=== PATIENT | female | born 2000 | race African-American/Black ===

== ENCOUNTER 2020-07-15 12:37 | Emergency (ER) | payer OTHER, SELFPAY ==
[2020-07-15] VITALS (24 sets, daily range): BP systolic 123–130; BP diastolic 67–89; PULSE 64–92; RESP 13–20; TEMP 37.1; O2SAT 96–100
--- NOTE | ~2020-07-15 | CT_ITS ---
EXAMINATION: CT brain wo con EXAM DATE: 07/15/2020 14:23 INDICATION: Seizure without head injury. TECHNIQUE: Spiral CT of the head was performed without contrast. Axial, coronal and sagittal images were reviewed. The dose-length product (DLP) for this examination was 529.67 mGy-cm. The exposure w as tailored according to patient size, and iterative reconstruction (ASIR) was used as additional dos e reduction technique. There is no prior study for comparison. FINDINGS: There is no acute intraparenchymal hemorrhage. No evidence of intraparenchymal brain mass lesion. No evidence of acute infarction. There is no mass effect or midline shift. The ventricles are normal in size. There are no extra-axial collections. There are no acute calvarial fractures. T he orbits are unremarkable. Soft tissue is unremarkable. The visualized sinuses and mastoid air clif[place] ls are well aerated. IMPRESSION: Normal head CT. Reviewed, dictated and finalized at location A. IMPRESSION: Normal head CT.
--- NOTE | 2020-07-15 13:55 | ECG_ITS ---
Measurements Intervals [place] Rate: 99 P: 74 NE: 153 QRS: 61 QRSD: 87 T: 48 QT: 326 QTc: 419 Interpretive Statements SINUS RHYTHM WITH SINUS ARRHYTHMIA POSSIBLE LEFT ATRIAL ENLARGEMENT BORDERLINE ECG Electronically Signed On 07-15-2020 14:00:15 CDT by Roosevelt Machado D.O.
--- NOTE | 2020-07-15 14:14 | ED.SEIZURE ---
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[employer] but did not work last night Apparently she got up early and then went back to take a nap The thirdhand report is that her boyfriend who is not here had not seen her get back up and checked on her and thought her teeth might have been clenched or her hands could have been clenched but she was under the covers it was hard to tell She was not incontinent of urine EMS did not report witnessing any actual seizure activity but they by report did not rule out that she could have been confused/postictal Here she has no complaints whatsoever, denies having bit her tongue, denies incontinence, denies any muscular soreness or other injury She smokes cigarettes but not even every day, she drinks wine but not every day chest usually when she smokes cigarettes, she smokes pot but not every day, and she does not use other drugs Her boyfriend did arrive later on and his description is more seizure-like, with clenching of jaw, possible biting tongue or lip Related Data Home Medications Medication Instructions Recorded Confirmed No Home Medications 07/15/20 07/15/20 Allergies Allergy/AdvReac Type Severity Reaction Status Date / Time No Known Allergies Allergy Verified 07/15/20 13:33 Review of Systems Review of Systems: All systems reviewed & are unremarkable except as noted in HPI and below Constitutional: Constitutional: Reports no additional constitutional complaints, Denies chills, Denies fever(s) and Denies headache(s) Eyes: Eyes: Reports no additional eye complaints and Denies change in vision ENT: Denies dysphagia, Denies headache(s) and Denies sore throat Cardiovascular: Cardiovascular: Denies chest pain and Denies dyspnea Respiratory: Respiratory: Denies cough and Denies dyspnea Gastrointestinal: Gastrointestinal: Denies abdominal pain, Denies diarrhea and Denies vomiting Genitourinary: Genitourinary: Denies urinary frequency and Denies dysuria Musculoskeletal: Musculoskeletal: Denies deformity, Denies arthralgias, Denies joint swelling and Denies numbness Integumentary/Breasts: Skin/Breast: Denies rash and Denies wounds Neurologic: Denies headache(s), Denies focal weakness and Denies numbness Psychiatric: Psychiatric: Reports no additional psychiatric complaints Endocrine: Endocrine: Reports no additional endocrine complaints Hematologic/Lymphatic: Hematologic/Lymphatic: Reports no additional hematologic/lymphatic complaints Allergic/Immunologic: Allergic/Immunologic: Reports no additional allergic/immunologic complaints Exam Const: General: cooperative, healthy appearing, no acute distress and alert Orientation/consciousness: patient oriented x3 (alert) and No confusion Limitations: No altered mental status HENMT: Head: normal to inspection, normocephalic, atraumatic, no contusions and no hematomas Ears: external ears normal General nose exam: no epistaxis Eyes: Conjunctivae: conjunctivae normal Pupils: Equal, round and reactive pupils present EOM: EOMs intact bilaterally Neck: Neck: normal visual inspection, supple and no JVD Other: Supple Resp: Effort & Inspection: normal respiratory effort and not labored Auscultation: clear to auscultation bilaterally and other (BS =) Cardio: Rate: regular rate Rhythm: regular rhythm Heart sounds: no murmurs GI: GI Palp: Yes Soft to palpation, Yes Tenderness to palpation present (GI), No Guarding due to palpation present (GI) and No Rebound tenderness present Skin: General skin exam: normal color and no rashes or lesions noted Neuro: General: patient oriented x
[2020-07-15 14:58] LABS: Add Urine Microscopic? YES; Appearance Urine Clear (Clear); Bilirubin Urine Negative (Negative); Blood Urine Negative (Negative); Color Urine Yellow (Yellow); Glucose Urine UA Negative (Negative); Ketones Urine Negative (Negative); Leukocyte Esterase Ur Negative LEU/UL (Negative); Mucus Urine Rare /lpf; Nitrate Urine Negative (Negative); Protein Urine 1+ mg/dL (Negative); RBC Urine 0-2 /hpf (0-2); Specific Grav Ur 1.017 (1.001-1.035); Squamous Epithelial Cell Urine Occasional /hpf (Few); Urobilinogen Urine Negative mg/dL (<2.0); WBC Urine 0-3 /hpf
[2020-07-15 15:07] LABS: Basophils Absolute Auto 0.1 K/mm3 (0.0-0.1); Basophils Percent Auto 0.4 % (0.2-1.2); Eosinophils Absolute Auto 0.2 K/mm3 (0-0.3); Eosinophils Percent Auto 1.6 % (0-4.4); Hematocrit 43.1 % (37.0-47.0); Hemoglobin 14.4 g/dL (12.0-15.0); Immature Granulocyte Absolute 0.05 K/mm3 (0.00-0.031); Immature Granulocyte Percent A 0.4 % (0-0.5); Lymphocytes Absolute Auto 3.01 K/mm3 (0.9-3.2); Lymphocytes Percent Auto 23.5 % (18.3-44.2); Mean Corpuscular HGB Conc 33.4 g/dl (32-36); Mean Corpuscular Hemoglobin 30.8 pg (26-34); Mean Corpuscular Volume 92.3 fl (80-100); Mean Platelet Volume 11.2 fl (7.4-10.4); Monocytes Absolute Auto 1.1 K/mm3 (0.1-0.6); Monocytes Percent Auto 8.4 % (2.6-8.5); Neutrophils Absolute Auto 8.4 K/mm3 (1.3-6.7); Neutrophils Percent Auto 65.7 % (45.5-73.1); Platelet Count Result 240 k/mm3 (150-375); Red Blood Count 4.67 M/mm3 (4.2-5.4); White Blood Count 12.8 K/mm3 (4.5-10.0)
[2020-07-15 15:18] LABS: Barbiturate Screen Urine Negative (Negative); Benzodiazepines Screen Urine Negative (Negative)
[2020-07-15 15:21] LABS: Ethanol < 10 mg/dL (<10)
[2020-07-15 15:26] LABS: Cannabinoid Screen Urine Positive (Negative); Cocaine Screen Urine Negative (Negative); Methadone Screen Urine Negative (Negative); Opiate Screen Urine Negative (Negative); Phencyclidine Screen Urine Negative (Negative)
[2020-07-15 16:31] LABS: Alanine Aminotransferase 21 U/L (4-35); Albumin Level 4.1 g/dL (3.5-5.1); Alkaline Phosphatase 81 U/L (38-126); Anion Gap 3 mmol/L (8-16); Aspartate Amino Transferase 27 U/L (14-36); Bilirubin,Total 0.3 mg/dL (0.2-1.3); Blood Urea Nitrogen 8 mg/dL (7-17); Calcium 8.8 mg/dL (8.4-10.2); Carbon Dioxide 28 mmol/L (22-30); Chloride 106 mmol/L (98-107); Estimated CRCL calculation 123 ml/min; Estimated Glomerular Filt Rate > 60; Glucose 96 mg/dL (65-105); Potassium 4.4 mmol/L (3.4-5.0); Sodium 137 mmol/L (137-145)
[2020-07-18 07:54] LABS: Prolactin 9.7 ng/mL (***)
== END 2020-07-15 17:55 | disposition home or self-care (01) ==
PROVIDERS: Emergency Provider Emergency Medicine
DX: R40.4 Transient alteration of awareness (principal); F17.210 Nicotine dependence, cigarettes, uncomplicated; R94.31 Abnormal electrocardiogram [ECG] [EKG]
CPT/HCPCS: 36415; 70450; 80053; 80307; 81001; 81025; 84146; 85025; 93005; 99284

== ENCOUNTER 2020-07-18 21:00 | Emergency (ER) | payer OTHER, SELFPAY ==
[2020-07-18 21:01] VITALS: TEMP 36.8
[2020-07-18 21:08] LABS: Glucose Point of Care 88 (65-105)
[2020-07-18 21:18] VITALS: BP 127/81; PULSE 105; RESP 16; TEMP 37.1; O2SAT 100
[2020-07-18 22:04] LABS: Basophils Percent Auto 0.3 % (0.2-1.2); Eosinophils Absolute Auto 0.2 K/mm3 (0-0.3); Eosinophils Percent Auto 1.3 % (0-4.4); Hemoglobin 14.8 g/dL (12.0-15.0); Immature Granulocyte Absolute 0.04 K/mm3 (0.00-0.031); Immature Granulocyte Percent A 0.3 % (0-0.5); Lymphocytes Absolute Auto 2.57 K/mm3 (0.9-3.2); Lymphocytes Percent Auto 21.7 % (18.3-44.2); Mean Corpuscular HGB Conc 32.9 g/dl (32-36); Mean Corpuscular Hemoglobin 31.3 pg (26-34); Mean Corpuscular Volume 95.1 fl (80-100); Mean Platelet Volume 10.9 fl (7.4-10.4); Monocytes Absolute Auto 0.9 K/mm3 (0.1-0.6); Monocytes Percent Auto 7.6 % (2.6-8.5); Neutrophils Absolute Auto 8.2 K/mm3 (1.3-6.7); Neutrophils Percent Auto 68.8 % (45.5-73.1); Platelet Count Result 225 k/mm3 (150-375); Red Blood Count 4.73 M/mm3 (4.2-5.4); Red Cell Distribution Width 12.6 % (11.5-14.5); White Blood Count 11.9 K/mm3 (4.5-10.0)
[2020-07-18 22:17] LABS: Anion Gap 8 mmol/L (8-16); Blood Urea Nitrogen 7 mg/dL (7-17); Calcium 9.1 mg/dL (8.4-10.2); Carbon Dioxide 26 mmol/L (22-30); Chloride 105 mmol/L (98-107); Estimated CRCL calculation 117 ml/min; Estimated Glomerular Filt Rate > 60; Glucose 82 mg/dL (65-105); Potassium 4.1 mmol/L (3.4-5.0); Sodium 139 mmol/L (137-145)
[2020-07-18] MEDS: levETIRAcetam 1000MG/NACL100ML 1,000 MG/100 ML BAG 400 MG IVPB (22:23)
[2020-07-18] MEDS: ACETAMINOPHEN 500 MG TABLET 1000 MG PO (22:23)
--- NOTE | 2020-07-18 22:45 | ED.SEIZURE ---
HPI - Seizure General Chief Complaint: Seizure Stated Complaint: seizure Time Seen by Provider: 07/18/20 21:06 History of Present Illness HPI Narrative: Patient is a 20-year-old female who presents ER with seizure. Witnessed by father. Reports he she started looking off to the right side and her right arm extended out and then her hand became flexed. Shook for about 10 minutes. Patient regained consciousness upon arrival to the ER. Had a similar episode earlier in the week. Was not started on antiepileptics as it is a first-time seizure. Patient has been working nights and gets intermittent sleep during the day. His only real modification that could be causing stress in her life. No fevers or chills or sweats. No drug abuse. Patient reports she has not been driving. She does not abuse drugs or drink alcohol excessively. Seizure History: Yes Related Data Allergies Allergy/AdvReac Type Severity Reaction Status Date / Time No Known Allergies Allergy Verified 07/18/20 21:04 Review of Systems Review of Systems: All systems reviewed & are unremarkable except as noted in HPI and below Constitutional: Constitutional: Denies chills, Denies fever(s) and Denies weakness ENT: Denies nasal congestion and Denies sore throat Cardiovascular: Cardiovascular: Denies chest pain, Denies rapid heart rate and Denies radiating jaw, neck or arm pain Respiratory: Respiratory: Denies cough, Denies dyspnea and Denies wheezing Neurologic: Denies focal weakness and Denies numbness Comments: Seizure PMFSH Past Medical History Medical History (Updated 07/18/20 @ 22:48 by Jacob Mariee MD) Seizures Surgical History Surgical History (Updated 07/18/20 @ 22:47 by Jacob Mariee MD) No pertinent past surgical history Social History Social History (Updated 07/18/20 @ 22:47 by Jacob Mariee MD) Smoking status: Never smoker Exam Narrative: Exam Narrative: GENERAL: Well-appearing, well-nourished, and in no acute distress. HEAD: Normocephalic, atraumatic. ENT: Mucous membranes moist. No injury to tongue. CHEST: Clear to auscultation. No respiratory distress. HEART: Regular rate and rhythm. Normal peripheral pulses. ABDOMEN: Soft, nontender, nondistended. EXTREMITIES: Normal range of motion. No edema. NEURO: Alert and oriented x3. PSYCH: Normal mood and affect. Course Course Emergency Course: Patient given Keppra 1 g IV for load. Discussed Dr. Rene who recommends Keppra 500 mg twice daily outpatient. Also would recommend outpatient EEG. Needs to follow-up in clinic. Patient educated about treatment plan and verbalized understanding. Vital Signs Vital signs: Vital Signs Temperature 98.2 F 07/18/20 21:01 Temperature 98.8 F 07/18/20 21:18 Pulse Rate 105 H 07/18/20 21:18 Respiratory Rate 16 07/18/20 21:18 Blood Pressure 127/81 07/18/20 21:18 Pulse Oximetry 100 07/18/20 21:18 MDM - Seizure Lab Data Result diagrams: 07/18/20 21:56 07/18/20 21:56 Labs: Lab Results 07/18/20 07/18/20 07/18/20 Range/Units 21:05 21:56 21:56 WBC 11.9 H (4.5-10.0) K/mm3 RBC 4.73 (4.2-5.4) M/mm3 Hgb 14.8 (12.0-15.0) g/dL Hct 45.0 (37.0-47.0) % MCV 95.1 (80-100) fl MCH 31.3 (26-34) pg MCHC 32.9 (32-36) g/dl RDW 12.6 (11.5-14.5) % Plt Count 225 (150-375) k/mm3 MPV 10.9 H (7.4-10.4) fl Immature Gran % (Auto) 0.3 (0-0.5) % Neut % (Auto) 68.8 (45.5-73.1) % Lymph % (Auto) 21.7 (18.3-44.2) % [place] % (Auto) 7.6 (2.6-8.5) % Eos % (Auto) 1.3 (0-4.4) % Baso % (Auto) 0.3 (0.2-1.2) % Lymph # (Auto) 2.57 (0.9-3.2) K/mm3 [place] # (Auto) 0.9 H (0.1-0.6) K/mm3 Eos # (Auto) 0.2 (0-0.3) K/mm3 Baso # (Auto) 0.0 (0.0-0.1) K/mm3 Abs Immat Gran (auto) 0.04 H (0.00-0.031) K/mm3 Absolute Neuts (auto) 8.2 H (1.3-6.7) K/mm3 Absolute Nucleated RBC 0.0 (0.0-0.012) K/mm3 Nucleated
[2020-07-18 23:51] VITALS: BP 120/74; PULSE 75; RESP 16; TEMP 36.6; O2SAT 100
[2020-07-19 00:03] LABS: Amphetamine Screen Urine Negative (Negative); Barbiturate Screen Urine Negative (Negative); Benzodiazepines Screen Urine Negative (Negative); Cannabinoid Screen Urine Positive (Negative); Cocaine Screen Urine Negative (Negative); Methadone Screen Urine Negative (Negative); Opiate Screen Urine Negative (Negative); Phencyclidine Screen Urine Negative (Negative)
== END 2020-07-18 23:52 | disposition home or self-care (01) ==
PROVIDERS: Emergency Provider Emergency Medicine
DX: R56.9 Unspecified convulsions (principal)
CPT/HCPCS: 36415; 80048; 80307; 82948; 85025; 85055; 96365; 99284; A9270; J1953

== ENCOUNTER 2020-08-01 16:49 | Emergency (ER) | payer OTHER, SELFPAY ==
--- NOTE | 2020-08-01 17:50 | PC.NURSE ---
pt left to go to [place] with her father, pt had iv removed prior to leaving the ED.
== END 2020-08-01 17:50 | disposition left against medical advice (07) ==
PROVIDERS: Emergency Provider Emergency Medicine
DX: Z53.21 Procedure and treatment not carried out due to patient leaving prior to being seen by health care provider (principal)
CPT/HCPCS: 99199

== ENCOUNTER 2020-08-01 18:48 | Inpatient (IN) | payer OTHER, SELFPAY ==
[2020-08-01] VITALS (14 sets, daily range): BP systolic 93–143; BP diastolic 54–90; PULSE 72–105; RESP 14–26; TEMP 36.5–36.8; O2SAT 99–100
--- NOTE | ~2020-08-01 | XR_ITS ---
EXAMINATION: XR chest 1V portable DATE: 08/03/2020 09:44 INDICATION: Fluid retention. TECHNIQUE: A single frontal view of the chest was obtained. COMPARISON: None. FINDINGS: The chest demonstrates clear lungs without pneumonia, pleural effusion, or pneumothorax. Th e heart size is normal. IMPRESSION: 1. No acute cardiopulmonary disease. Reviewed, dictated and finalized at location A.
--- NOTE | ~2020-08-01 | CT_ITS ---
EXAMINATION: CT BRAIN W/O DATE: 08/01/2020 19:42 INDICATION: Seizures TECHNIQUE: Computed tomography (CT) of the head was performed without intravenous contrast. The dose- length product was 605.33 mGy-cm. The mA was adjusted according to patient size. Iterative reconstruc tion technique was employed. COMPARISON: CT dated 07/15/2020 FINDINGS: Normal brain parenchymal volume for age. Normal martínez-white differentiation. No acute intrac ranial hemorrhage, infarction, mass or mass effect. No ventriculomegaly or midline shift. Midline sagittal images demonstrate a normal corpus callosum, c raniovertebral junction and sella turcica. Basilar cisterns are patent. Paranasal sinuses and mastoids are pneumatized. No depressed skull fractures. IMPRESSION: 1. No acute intracranial abnormality. Reviewed, dictated and finalized at location A.
--- NOTE | 2020-08-01 19:00 | PC.NURSE ---
assumed care of Pt. Report from Brian IRIZARRY.
--- NOTE | 2020-08-01 19:03 | ECG_ITS ---
Measurements Intervals [place] Rate: 68 P: 74 [place]: 159 QRS: 57 QRSD: 90 T: 48 QT: 385 QTc: 410 Interpretive Statements SINUS RHYTHM BASELINE ARTIFACT- II, III, AVR, AVL, AVF, V1, V3-V6 NORMAL ECG Electronically Signed On 08-01-2020 20:03:59 CDT by Roosevelt Machado D.O.
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
--- NOTE | 2020-08-01 19:35 | PC.NURSE ---
pt to CT.
--- NOTE | 2020-08-01 19:45 | PC.NURSE ---
went to check on pt, pt IV edematous, discontinued IV. IV initiated prior to this RN assuming care of PT. Attempted to initiate another IV, unsuccessful.
--- NOTE | 2020-08-01 20:00 | PC.NURSE ---
Went and got Leonor RN. to attempt IV, Leonor unsuccessful x2. Leonor RN additional nurse to start IV.
--- NOTE | 2020-08-01 20:10 | PC.NURSE ---
Kelsi IRIZARRY went into pt room to initiate IV,pt was seizing. VORB from ERP Shawn 1 mg Ativan IVP administered for seizure. No iv access was obtained prior to seizure. IO placed by jerardo IRIZARRY
[2020-08-01 20:17] LABS: Basophils Percent Auto 0.3 % (0.2-1.2); Eosinophils Percent Auto 0.1 % (0-4.4); Hematocrit 45.7 % (37.0-47.0); Hemoglobin 14.7 g/dL (12.0-15.0); Immature Granulocyte Absolute 0.08 K/mm3 (0.00-0.031); Immature Granulocyte Percent A 0.5 % (0-0.5); Lymphocytes Percent Auto 12.7 % (18.3-44.2); Mean Corpuscular HGB Conc 32.2 g/dl (32-36); Mean Corpuscular Hemoglobin 30.4 pg (26-34); Mean Corpuscular Volume 94.4 fl (80-100); Mean Platelet Volume 11.8 fl (7.4-10.4); Monocytes Absolute Auto 0.8 K/mm3 (0.1-0.6); Neutrophils Absolute Auto 12.8 K/mm3 (1.3-6.7); Neutrophils Percent Auto 81.4 % (45.5-73.1); Platelet Count Result 261 k/mm3 (150-375); Red Blood Count 4.84 M/mm3 (4.2-5.4); Red Cell Distribution Width 12.7 % (11.5-14.5); White Blood Count 15.7 K/mm3 (4.5-10.0)
[2020-08-01 20:26] LABS: Alanine Aminotransferase 26 U/L (4-35); Albumin Level 4.7 g/dL (3.5-5.1); Alkaline Phosphatase 102 U/L (38-126); Anion Gap 9 mmol/L (8-16); Aspartate Amino Transferase 38 U/L (14-36); Bilirubin,Total 0.2 mg/dL (0.2-1.3); Blood Urea Nitrogen 4 mg/dL (7-17); Calcium 8.9 mg/dL (8.4-10.2); Carbon Dioxide 25 mmol/L (22-30); Chloride 106 mmol/L (98-107); Estimated Glomerular Filt Rate > 60; Glucose 142 mg/dL (65-105); Potassium 4.1 mmol/L (3.4-5.0); Sodium 140 mmol/L (137-145)
[2020-08-01] MEDS: LORazepam INJ (*CRX) 2 MG/ML VIAL 1 MG IV PUSH ×2 (20:27→21:20)
[2020-08-01] MEDS: SODIUM CHLORIDE 0.9% IV 1,000 ML 999 ML IV CONT (21:03)
[2020-08-01] MEDS: KETOROLAC 30 MG/ML VIAL (*BKC) IV PUSH (21:03)
[2020-08-01 21:11] LABS: Add Urine Microscopic? YES; Appearance Urine Clear (Clear); Bacteria Urine Trace /hpf; Bilirubin Urine Negative (Negative); Blood Urine 2+ (Negative); Color Urine Yellow (Yellow); Glucose Urine UA Negative (Negative); Ketones Urine Trace mg/dL (Negative); Leukocyte Esterase Ur Negative LEU/UL (Negative); Mucus Urine Rare /lpf; Nitrate Urine Negative (Negative); Protein Urine 2+ mg/dL (Negative); RBC Urine 51-75 /hpf (0-2); Specific Grav Ur 1.017 (1.001-1.035); Squamous Epithelial Cell Urine Rare /hpf (Few); Urobilinogen Urine Negative mg/dL (<2.0)
[2020-08-01] MEDS: fentaNYL CITRATE INJ (*CRX) 100 MCG/2 ML VIAL 50 MCG IV PUSH (21:20)
[2020-08-01 21:21] LABS: Lactic Acid Reflex 10.5 mmol/L (0.7-2.1)
[2020-08-01 22:03] LABS: Glucose CSF 93 mg/dL (40-70); Total Protein CSF 23 mg/dL (12-60)
--- NOTE | 2020-08-01 22:14 | PC.NURSE ---
Pt father wishes to be notified of any changes or updates. He asked to please leave a message if it goes to voicemail.
[2020-08-01 22:15] LABS: Amphetamine Screen Urine Negative (Negative); Barbiturate Screen Urine Negative (Negative); Benzodiazepines Screen Urine Negative (Negative); Cannabinoid Screen Urine Positive (Negative); Cocaine Screen Urine Negative (Negative); Methadone Screen Urine Negative (Negative); Opiate Screen Urine Negative (Negative); Phencyclidine Screen Urine Negative (Negative)
[2020-08-01 22:29] LABS: Appearance CSF Clear (Clear); CSF source CSF; Color CSF Colorless (Colorless); Lymphocytes CSF 80 % (40-80); Monocytes CSF 20 % (15-45); Nucleated Cell CSF 5 /uL (0-5); Red Blood Cell CSF 30 (0-2)
[2020-08-01] MEDS: levETIRAcetam 500MG/NACL 100ML 500 MG/100 ML BAG 400 MG IVPB (23:10)
[2020-08-02] VITALS (12 sets, daily range): BP systolic 106–131; BP diastolic 46–68; PULSE 60–99; RESP 16–18; TEMP 36–36.9; O2SAT 98–100; BMI 32.9
[2020-08-02 00:04] LABS: Reflex Lactic Acid Yes or No Add Lactic
--- NOTE | 2020-08-02 00:55 | ADMGEN ---
This patient, Veronica Wiggins, was admitted to Medical Room 250-. Patient/family oriented to hospital policies and general routines including ID bracelet, bed and alarms, visiting hours, pain management, procedures, bathroom and other care routines, personal items, smoking policy, room service/diet, and visiting hours. Information on how to activate the Rapid Response Team has been discussed. Patient/Family are encouraged to report perceived risks to care and to ask questions if they do not understand what they are told or what they should do.
[2020-08-02 01:11] LABS: Lactic Acid 1.4 mmol/L (0.7-2.1)
--- NOTE | 2020-08-02 01:13 | PC.NURSE ---
Lorazepam pulled from [facility] by Leonor IRIZARRY, not given. returned.
--- NOTE | 2020-08-02 02:14 | PM.IMHP ---
H&P: HPI History of Present Illness Date/Time: 08/02/20 02:14 Chief Complaint: Acute Seizure Narrative: This is a 20-year-old female with known history of recent ER visit on July 18, 2020 after she suffered a seizure and return to the hospital this evening with a complaint of seizure-like activity. The patient's father who presented with her reported to ER staff that the patient had a generalized seizure lasting approximately 10 minutes in duration. The patient was sitting in their car when she started to have her seizure. Apparently they were waiting to be seen in the waiting room and decided to leave when she suffered a 2nd seizure and was brought back to the hospital. While in the emergency room this evening the patient had a 3rd seizure that was witnessed by ER staff. She was loaded with IV Keppra in the ER. The patient was treated with Ativan IV. CT brain without contrast was performed which was unremarkable. Spinal tap was performed in the ER this evening. ER provider has consulted neurology who has asked that we admit the patient to the hospital and they will evaluate her in the morning. On my encounter with the patient tonight she is postictal and no history is obtainable at this time. Review of Systems Review of Systems: ROS unobtainable: Yes unobtainable due to medical condition PMFSH Past Medical History Medical History Seizures Surgical History Surgical History No pertinent past surgical history Family History Family History Grandparent Diabetes mellitus Father Heart murmur Social History Social History Smoking status: Never smoker Alcohol intake: current Substance use: current Substance use type: marijuana Last use: says she drinks every few weeks and doesnt drink alot Gender identity (if verbalized by the patient): Female Spiritual care concerns: No Meds Home Medications and Allergies Home Medications Medication Instructions Recorded Confirmed Type levetiracetam [Keppra] 500 mg PO BID 30 Days #60 tablet 07/18/20 08/02/20 Rx Allergies Allergy/AdvReac Type Severity Reaction Status Date / Time No Known Allergies Allergy Verified 04/08/21 21:04 Vital Signs Vital Signs - 24 hr 08/01/20 19:06 08/01/20 19:15 08/01/20 21:17 Temperature 36.5 C 36.7 C Pulse Rate 73 72 Pulse Rate [Monitor] 101 H Respiratory Rate 14 26 H Blood Pressure 128/74 Blood Pressure [Right Arm] 128/63 Pulse Oximetry 99 100 08/01/20 21:22 08/01/20 21:27 08/01/20 21:30 Temperature 36.7 C 36.7 C 36.7 C Pulse Rate Pulse Rate [Monitor] 105 H 91 99 Respiratory Rate 21 H 24 H 20 Blood Pressure Blood Pressure [Right Arm] 135/73 112/76 114/74 Pulse Oximetry 100 100 100 08/01/20 21:32 08/01/20 21:37 08/01/20 21:45 Temperature 36.7 C 36.7 C 36.7 C Pulse Rate Pulse Rate [Monitor] 92 89 94 Respiratory Rate 23 H 21 H 24 H Blood Pressure Blood Pressure [Right Arm] 100/70 93/66 L 120/90 Pulse Oximetry 100 100 100 08/01/20 22:00 08/01/20 22:15 08/01/20 22:30 Temperature 36.7 C 36.7 C 36.7 C Pulse Rate Pulse Rate [Monitor] 96 97 92 Respiratory Rate 23 H 20 21 H Blood Pressure Blood Pressure [Right Arm] 120/54 L 119/70 123/76 Pulse Oximetry 100 100 100 08/01/20 23:00 08/02/20 00:00 08/02/20 01:04 Temperature 36.3 C L Pulse Rate 83 79 Pulse Rate [Monitor] Respiratory Rate 18 16 Blood Pressure 143/78 H 106/46 L Blood Pressure [Right Arm] Pulse Oximetry 100 100 100 Exam Const: General: other (Somnolent, post-ictal) Nutritional Appearance: obese Orientation/consciousness: Other orientation findings (Somnolent and postictal) HENMT: Head: normal to inspection General nose exam: Normal external nose present Face and si
[2020-08-02 05:45] LABS: Basophils Percent Auto 0.2 % (0.2-1.2); Eosinophils Percent Auto 0.1 % (0-4.4); Hematocrit 40.5 % (37.0-47.0); Hemoglobin 13.2 g/dL (12.0-15.0); Immature Granulocyte Absolute 0.05 K/mm3 (0.00-0.031); Immature Granulocyte Percent A 0.3 % (0-0.5); Lymphocytes Absolute Auto 3.43 K/mm3 (0.9-3.2); Lymphocytes Percent Auto 17.8 % (18.3-44.2); Mean Corpuscular HGB Conc 32.6 g/dl (32-36); Mean Corpuscular Hemoglobin 30.3 pg (26-34); Mean Corpuscular Volume 92.9 fl (80-100); Mean Platelet Volume 11.3 fl (7.4-10.4); Monocytes Absolute Auto 1.5 K/mm3 (0.1-0.6); Monocytes Percent Auto 7.7 % (2.6-8.5); Neutrophils Absolute Auto 14.3 K/mm3 (1.3-6.7); Neutrophils Percent Auto 73.9 % (45.5-73.1); Platelet Count Result 270 k/mm3 (150-375); Red Blood Count 4.36 M/mm3 (4.2-5.4); Red Cell Distribution Width 12.5 % (11.5-14.5); White Blood Count 19.3 K/mm3 (4.5-10.0)
--- NOTE | 2020-08-02 05:56 | PC.NURSE ---
Mother Yenifer called about pt, patient said i could give mother an update on status.
[2020-08-02 06:03] LABS: Potassium 3.9 mmol/L (3.4-5.0)
[2020-08-02 06:08] LABS: Anion Gap 4 mmol/L (8-16); Blood Urea Nitrogen 3 mg/dL (7-17); Calcium 8.5 mg/dL (8.4-10.2); Carbon Dioxide 26 mmol/L (22-30); Chloride 107 mmol/L (98-107); Estimated CRCL calculation 144 ml/min; Estimated Glomerular Filt Rate > 60; Glucose 84 mg/dL (65-105); Sodium 137 mmol/L (137-145)
[2020-08-02 12:32] LABS: Add Urine Microscopic? YES; Appearance Urine Cloudy (Clear); Bilirubin Urine Negative (Negative); Blood Urine 3+ (Negative); Budding Yeast Urine Present /hpf; Color Urine Amber (Yellow); Glucose Urine UA Negative (Negative); Ketones Urine 1+ mg/dL (Negative); Leukocyte Esterase Ur Negative LEU/UL (Negative); Nitrate Urine Negative (Negative); Protein Urine 2+ mg/dL (Negative); RBC Urine >75 /hpf (0-2); Specific Grav Ur 1.023 (1.001-1.035); Urobilinogen Urine Negative mg/dL (<2.0)
--- NOTE | 2020-08-02 13:37 | WPDNEUROLOGY ---
Neurology EEG Report General Information Date of Study: 08/02/20 TEST eeg DIAGNOSIS seizures CONDITION OF RECORDING drowsy and sleep EEG NUMBER [id number] CLINICAL HISTORY patient was brought to the hospital emergency room for seizure activity EEG DESCRIPTION basic resting occipital frequency consists of low to medium voltage 8 to 9 hertz per 2nd alpha admixed with low-voltage 15 to 18 hertz per 2nd beta. During drowsiness low-voltage beta activity seen with waxing and waning posterior alpha rhythm. Bilateral symmetrical sleep activity seen during sleep. Multiple head and eye movements are seen throughout the tracing. Non paroxysmal. Nonfocal. Nonlateralizing. IMPRESSION No significant abnormalities noted
--- NOTE | 2020-08-02 13:46 | WPDNEURCNPN ---
Assessment and Plan Assessment and plan (1) Seizure: Code(s): R56.9 - Unspecified convulsions Status: Acute Additional Plan Recurrent seizures by his patient needs to an anticonvulsants was advise accordingly and also not to drive for the next several months and following the office Consult date: 08/02/20 Time Seen: 15:00 HPI: Veronica Wiggins is a 20 year old female admitted to the hospital subsequent to her having had a seizure in addition to the past history of visit to the emergency room on July 18, 2020 for the seizure as well the whole episode lasted for 10 minutes with a description that she was sitting in a car when she started to have seizure they were waiting into the waiting room to be seen when she decided to leave suffered a 2nd seizure was brought back to the hospital and while in the emergency room again she had a 3rd seizure she was loaded with IV Keppra in the emergency room along with treatment with Ativan intravenously CT scan of the brain was obtained which was negative for the bleed spinal tap was also performed in the emergency room and she was admitted to the hospital for further observation because of the history of 3 seizures in [address] as per the information available she has never smoked does drink alcohol and takes substance in addition to marijuana . evaluation in the emergency room revealed her to have wbc's of 19.3 with hemoglobin 13.2 and a platelet count of 270, basic metabolic panel was normal with lactic acid of 10.5 in the emergency room with subsequently came down to 1.4, UA was cloudy with 2+ protein 1+ ketones 3+ blood and more than 75 RBCs, his spinal fluid revealed 30 rbc's 5 total nucleated cells 80% lymphocytes and 20% monos side but the CSF glucose was 93 and protein only 23, drug screen positive for the cannabinoids, herpes simplex virus PCR is pending, head CT scan normal, as mentioned above patient has already been started on levetiracetam 500 mg twice a day Review of Systems Review of Systems: All systems reviewed & are unremarkable except as noted in HPI and below PMFSH Past Medical History Medical History Seizures Surgical History Surgical History No pertinent past surgical history Family History Family History Grandparent Diabetes mellitus Father Heart murmur Social History Social History Smoking status: Never smoker Alcohol intake: current Substance use: current Substance use type: marijuana Last use: says she drinks every few weeks and doesnt drink alot Gender identity (if verbalized by the patient): Female Spiritual care concerns: No Meds Home Medications and Allergies Home Medications Medication Instructions Recorded Confirmed Type levetiracetam [Keppra] 500 mg PO BID 30 Days #60 tablet 07/18/20 08/02/20 Rx Allergies Allergy/AdvReac Type Severity Reaction Status Date / Time No Known Allergies Allergy Verified 07/18/20 21:04 Vital Signs Vital Signs - 24 hr 08/01/20 19:06 08/01/20 19:15 08/01/20 19:30 Temperature 36.5 C 36.8 C Pulse Rate 73 72 78 Pulse Rate [Monitor] Respiratory Rate 14 20 Blood Pressure 128/74 126/78 Blood Pressure [Right Arm] Pulse Oximetry 99 100 08/01/20 21:17 08/01/20 21:22 08/01/20 21:27 Temperature 36.7 C 36.7 C 36.7 C Pulse Rate Pulse Rate [Monitor] 101 H 105 H 91 Respiratory Rate 26 H 21 H 24 H Blood Pressure Blood Pressure [Right Arm] 128/63 135/73 112/76 Pulse Oximetry 100 100 100 08/01/20 21:30 08/01/20 21:32 08/01/20 21:37 Temperature 36.7 C 36.7 C 36.7 C Pulse Rate 97 Pulse Rate [Monitor] 99 92 89 Respiratory Rate 20 23 H 21 H Blood Pressure 118/78 Blood Pressure [Right Arm] 114/74 100/70 93/66 L Pulse Oximetry 100 100 100 08/01/20 21:45 08/01/20 22:
--- NOTE | 2020-08-02 14:11 | PM.IMPN ---
Progress Note: A&P Assessment and Plan (1) Seizure: Code(s): R56.9 - Unspecified convulsions <Arline Saldivar BRIAN Lew - Last Filed: 08/02/20 14:12> Status: Acute <Arline LewBRIAN - Last Filed: 08/02/20 14:12> Assessment and Plan: The patient has been placed in observation status. Continue seizure precautions. Continue Keppra. P.r.n. IV Ativan for any acute seizures. Monitor electrolytes. CT brain was obtained and unremarkable. Neurology has been consulted. Appreciate neurology input. <Arline LewBRIAN - Last Filed: 08/02/20 14:12> (2) Leukocytosis: Qualifiers: Leukocytosis type: unspecified Qualified Code(s): D72.829 - Elevated white blood cell count, unspecified <Arline LewBRIAN - Last Filed: 08/02/20 14:12> Code(s): D72.829 - Elevated white blood cell count, unspecified <Arline LewBRIAN - Last Filed: 08/02/20 14:12> Status: Acute <Arline Saldivar BRIAN Lew - Last Filed: 08/02/20 14:12> Assessment and Plan: Likely secondary to acute seizure. Monitor CBCD <Arline Saldivar BRIAN Lew - Last Filed: 08/02/20 14:12> (3) Elevated lactic acid level: Code(s): R79.89 - Other specified abnormal findings of blood chemistry <Arline Saldivar BRIAN Lew - Last Filed: 08/02/20 14:12> Status: Acute <Arline Saldivar BRIAN Lew - Last Filed: 08/02/20 14:12> Assessment and Plan: Secondary to acute seizure. Repeat lactic acid was normal. <Arline MarimraBRIAN Neff - Last Filed: 08/02/20 14:12> (4) Marijuana abuse: Code(s): F12.10 - Cannabis abuse, uncomplicated <BRIAN Baldwin - Last Filed: 08/02/20 14:12> Status: Chronic <BRIAN Baldwin - Last Filed: 08/02/20 14:12> Assessment and Plan: Patient will need to be counseled on marijuana cessation once she is more alert and awake. <BRIAN Baldwin - Last Filed: 08/02/20 14:12> Additional Plan Date of service was August 02, 2020 at approximately 1:45 a.m. <BRIAN Baldwin - Last Filed: 08/02/20 14:12> Subjective Date/time seen: 08/02/20 14:11 Pt seen. I agree with current A/P <BRIAN Baldwin - Last Filed: 08/02/20 14:12> Objective Data Vital Signs Vital Signs: Vital Signs - 24 hr 08/01/20 19:06 08/01/20 19:15 08/01/20 19:30 Temperature 36.5 C 36.8 C Pulse Rate 73 72 78 Pulse Rate [Monitor] Respiratory Rate 14 20 Blood Pressure 128/74 126/78 Blood Pressure [Right Arm] Pulse Oximetry 99 100 08/01/20 21:17 08/01/20 21:22 08/01/20 21:27 Temperature 36.7 C 36.7 C 36.7 C Pulse Rate Pulse Rate [Monitor] 101 H 105 H 91 Respiratory Rate 26 H 21 H 24 H Blood Pressure Blood Pressure [Right Arm] 128/63 135/73 112/76 Pulse Oximetry 100 100 100 08/01/20 21:30 08/01/20 21:32 08/01/20 21:37 Temperature 36.7 C 36.7 C 36.7 C Pulse Rate 97 Pulse Rate [Monitor] 99 92 89 Respiratory Rate 20 23 H 21 H Blood Pressure 118/78 Blood Pressure [Right Arm] 114/74 100/70 93/66 L Pulse Oximetry 100 100 100 08/01/20 21:45 08/01/20 22:00 08/01/20 22:15 Temperature 36.7 C 36.7 C 36.7 C Pulse Rate Pulse Rate [Monitor] 94 96 97 Respiratory Rate 24 H 23 H 20 Blood Pressure Blood Pressure [Right Arm] 120/90 120/54 L 119/70 Pulse Oximetry 100 100 100 08/01/20 22:30 08/01/20 23:00 08/02/20 00:00 Temperature 36.7 C 36.3 C L Pulse Rate 83 70 Pulse Rate [Monitor] 92 Respiratory Rate 21 H 18 16 Blood Pressure 143/78 H 106/46 L Blood Pressure [Right Arm] 123/76 Pulse Oximetry 100 100 100 08/02/20 01:04 08/02/20 04:00 08/02/20 05:00 Temperature 36.3 C L Pulse Rate 89 75 Pulse Rate [Monitor] Respiratory Rate 16 Blood Pressure 112/61 Blood Pressure [Right Arm] Pulse Oximetry 100 100 08/02/20 06:00 08/02/20 08:00 08/02/20 08:30 Temperat
--- NOTE | 2020-08-02 15:09 | PC.NURSE ---
On 08/02/20, the student, [Charbel Presley], provided care and completed [facility] documentation on this patient. I have reviewed the student's documentation and agree with the findings.
[2020-08-02] MEDS: levETIRAcetam 500 MG TABLET PO (20:48)
[2020-08-03] VITALS: PULSE 58
[2020-08-03 00:43] VITALS: BP 111/56; PULSE 57; RESP 16; TEMP 36.4; O2SAT 99
[2020-08-03 04:00] VITALS: BP 125/81; PULSE 62; PULSE 74; RESP 18; TEMP 36.2; O2SAT 100
[2020-08-03] MEDS: ACETAMINOPHEN 325 MG TABLET 650 MG PO (05:39)
[2020-08-03 08:12] VITALS: O2SAT 98
[2020-08-03 08:26] VITALS: PULSE 97
[2020-08-03] MEDS: levETIRAcetam 500 MG TABLET PO (08:28)
[2020-08-03 09:40] VITALS: BP 107/80; PULSE 62; RESP 16; TEMP 36.4; O2SAT 100
[2020-08-03 10:22] LABS: NT Pro B Type Natriuretic Pept 60 pg/mL (5-100)
--- NOTE | 2020-08-03 12:57 | PM.DS ---
DS: Admitting Diagnosis Admitting Diagnosis Admitting Diagnosis: seizures DS: Discharge Diagnosis Discharge Diagnosis (1) Seizure: Code(s): R56.9 - Unspecified convulsions Status: Acute Assessment and Plan: The patient has been placed in observation status. Continue seizure precautions. Continue Keppra. P.r.n. IV Ativan for any acute seizures. Monitor electrolytes. CT brain was obtained and unremarkable. Neurology has been consulted. Appreciate neurology input. (2) Leukocytosis: Qualifiers: Leukocytosis type: unspecified Qualified Code(s): D72.829 - Elevated white blood cell count, unspecified Code(s): D72.829 - Elevated white blood cell count, unspecified Status: Acute Assessment and Plan: Likely secondary to acute seizure. Monitor CBCD (3) Elevated lactic acid level: Code(s): R79.89 - Other specified abnormal findings of blood chemistry Status: Acute Assessment and Plan: Secondary to acute seizure. Repeat lactic acid was normal. (4) Marijuana abuse: Code(s): F12.10 - Cannabis abuse, uncomplicated Status: Chronic Assessment and Plan: Patient will need to be counseled on marijuana cessation once she is more alert and awake. DS: Summary Hospital Course Hospital Course: Ms. Wiggins was admitted with recurrent seizures. She was treated with Keppra and neurology was consulted. She will continue on anticonvulsants and has been advised to follow with neurology outpatient for the next several months. She has been advised not to drive until she has been cleared by neurology. Time Spent with Patient Time attestation: Total time spent providing and/or coordinating discharge services: 55 Exam Const: General: other (Somnolent, post-ictal) Nutritional Appearance: obese Orientation/consciousness: Other orientation findings (Somnolent and postictal) HENMT: Head: normal to inspection General nose exam: Normal external nose present Face and sinus: normal facial exam Mouth: Yes Normal oral and palatal mucosa present and Yes oropharynx normal Eyes: Pupils: Equal, round and reactive pupils present Neck: Neck: supple and no JVD Thyroid: thyroid normal Lymphatic: lymphadenopathy not noted Resp: Effort & Inspection: normal respiratory effort Auscultation: clear to auscultation bilaterally Cardio: Rate: regular rate Rhythm: regular rhythm Heart sounds: no murmurs GI: Inspection: normal to inspection Auscultation: normal bowel sounds Skin: General skin exam: normal color and no rashes or lesions noted Neuro: Cranial nerves: Yes Equal, round and reactive pupils present Extrem: General: normal to inspection and no edema DS: Data Data Completed and Pending Labs on day of discharge: Labs from last 24 hours 08/03/20 09:55 NT-Pro-B Natriuret Pep 60 Preliminary micro results at discharge 08/01/20 21:46 CSF Culture - Preliminary Cerebral Spinal Fluid Discharge Plan Discharge Attending physician on discharge: Muna Melissa Consulting providers: Mulugeta Gan ; Angelito Rene Discharging Clinician: Arline Lew Patient Disposition: Home, Self-Care Activity: no driving Diet: regular Patient Instructions: Antibiotic Form Stand Alone Forms: General Discharge Information Follow-up/Referrals: Mulugeta Gan MD [Physician] - (within 10-14 days) Angelito Rene MD [Physician] - (contact office to follow up within 2-4 weeks) Discharge Medications: Continued levetiracetam [Keppra] 500 mg tablet 500 mg PO BID 30 Days Qty: 60 RF: 0 Date of admission: 08/02/20 08:48 Primary Care Provider: PHYSICIAN,REFINERY OPERATOR [facility] Admitting Provider: Kostas Morales Attending physician on admission: Kostas Morales Condition: Stable Quality VTE Prophylaxis VTE prophylaxis: mechanical ordered
[2020-08-04 16:30] LABS: Herpes Simplex Type 1 DNA PCR Not Detected (Not Detected); Herpes Simplex Type 2 DNA PCR Not Detected (Not Detected)
== END 2020-08-03 13:39 | disposition home or self-care (01) | DRG 101 ==
LOC: ANHED 19:14 → ANH2MED 23:52
PROVIDERS: Nurse Practitioner Adult Health; Admitting Provider Family Medicine; Emergency Provider Emergency Medicine; Visit Provider Hospitalist
DX: R56.9 Unspecified convulsions (principal); D72.829 Elevated white blood cell count, unspecified; R51.9 Headache, unspecified; R79.89 Other specified abnormal findings of blood chemistry; F12.10 Cannabis abuse, uncomplicated; Z79.899 Other long term (current) drug therapy
CPT/HCPCS: 36415; 51701; 62270; 70450; 71045; 80048; 80053; 80307; 81001; 81025; 82945; 83605; 83735; 83880; 84157; 85025; 87070; 87529; 88108; 89051; 93005; 95816; 96361; 96365; 96375; 96376; 99285; A9270; G0378; J1885; J1953; J2001; J2060; J3010; J7030